=== PATIENT | male | born 2000 | race Caucasian/White ===

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

== ENCOUNTER 2020-05-11 11:27 | Emergency (ER) | payer BC, MEDICAID, SELFPAY ==
[2020-05-11 11:36] VITALS: BP 174/86; PULSE 87; RESP 20; TEMP 36.4; O2SAT 98
--- NOTE | 2020-05-11 11:46 | ED.GENADUL_ITS ---
Discharge Plan Disposition Patient Disposition: HOME Condition: Stable Discharge Details Clinical Impression: Mouth ulcer Primary Care Provider: Shakir Brewer ED Provider: Marixa Wayne Home Meds and New Rx's Prescriptions: New amoxicillin 500 mg tablet 500 mg PO TID 7 Days Qty: 21 RF: 0 Continued fluoxetine 20 mg capsule 40 mg PO DAILY Qty: 180 RF: 3 Discharge Instructions Instructions: Canker Sores (ED) Additional Instructions: You appear to have a small ulceration on the mucosal surface of your gums. This can be the source of your pain. It is important to avoid hot, spicy or small sharp foods to allow this area to heal. You can gargle with salt water and Listerine to clean the area. You do not have any evidence of a dental abscess at this time. Alternate tylenol and motrin as needed and directed for pain. If your symptoms do not improve in the next 1 to 2 days, you can start the oral antibiotic. Call your dentist tomorrow morning to schedule follow-up appointment for reevaluation. Return immediately to the emergency department if you develop any worsening or new concerning symptoms. Discharge Data Discharge Date/Time-TO BE ENTERED AT DEPARTURE: 05/11/20 12:43 Discharge Physician: Marixa Wayne Medical Decision Making 19-year-old male presents with an area of swelling and pain below a right front tooth for the past few days. Presents for evaluation of possible dental abscess. Patient has a 1 x 3 mm mucosal ulcer below tooth #28 but no evidence of abscess. Discussed with patient that this could have been due to trauma associated with hot liquids or foods, forceful toothbrushing, etc. No tenderness to palpation of teeth. Remainder of ENT exam normal. Patient advised on proper oral care, gargling with salt water and Listerine. Will give patient prescription for antibiotics if symptoms do not improve with oral care. He is advised to call his dentist tomorrow. Usual and customary return precautions given prior to discharge. Medical Records Medical records reviewed: Yes I reviewed the patient's medical records. HPI General Mode of arrival: ambulatory . Date/Time Provider Initiated Documentation: 05/11/20 11:45 . Limitations to Documentation: no limitations . Information obtained by: patient . HPI Narrative: Patient is a 19-year-old male who presents with swelling and pain of his gum on the right lower side for the past few days and he is concerned about a possible dental infection or abscess. He denies any dental pain, fever, sore throat, ear pain. He states he had a dental abscess 1 to 2 years ago that was treated with antibiotics and has had an area of swelling that has remained below this tooth since then. He states he had dental pain at that time but denies any dental pain for this current episode. He states he does have a dentist at [facility] and was told that he needs a root canal of the tooth in which she had a dental abscess but has put this appointment off due to Covid and other family issues. Related Data Home Medications Medication Instructions Recorded Confirmed fluoxetine 20 mg capsule 40 mg PO DAILY #180 cap 08/06/19 05/11/20 amoxicillin 500 mg PO TID 7 Days #21 tab 05/11/20 Previous Rx's Medication Instructions Recorded fluoxetine 20 mg capsule 40 mg PO DAILY #180 cap 08/06/19 amoxicillin 500 mg PO TID 7 Days #21 tab 05/11/20 Allergies Allergy/AdvReac Type Severity Reaction Status Date / Time No Known Drug Allergies Allergy Verified 02/12/19 07:26 Seasonal/Environmental Allergy Unknown Uncoded 02/12/19 07:26 Allergies General Stated Complaint: DentalOral STEFFANIE: 4 Review of Systems All systems reviewed & are unremarkable except as noted in HPI and below Constitutional Constitutional: Reports as per HPI, Denies chills and Denies fever(s) Eyes Eyes: Denies blurry vision ENT Ears, Nose, Mouth, and Throat: Denies dizziness, Reports mouth lesions, Reports mouth pain, Denies sore throat and Denies throat swelling Cardiovascular Cardiovascular: Denies chest pain and Denies dyspnea Respiratory Respiratory: Denies cough and Denies dyspnea Gastrointestinal Gastrointestinal: Denies abdominal pain, Denies diarrhea and Denies vomiting Genitourinary Genitourinary: Denies hematuria and Denies dysuria Musculoskeletal Musculoskeletal: Denies back pain and Denies numbness Integumentary/Breasts Skin/Breast: Denies lesions and Denies rash Neurologic Neurologic: Denies dizziness, Denies localized weakness and Denies numbness Allergic/Immunologic Allergic/Immunologic: Denies throat swelling [facility] Medical History (Updated 05/11/20 @ 12:27 by Marixa Wayne DO) Anxiety (05/22/14) issues going to school - HAD DONE WELL WITH MEDS BUT STOPPED AND RELAPSED 01/11 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 Family History Mother Healthy adult on routine physical examination Father Healthy adult on routine physical examination Maternal Uncle Sudden of family member MATERNAL UNCLE- HEART ATTACK Social History Smoking/Tobacco Use Status: Never Smoking risk assessment performed?: Yes Alcohol Intake: never Drug use: Never Substance use type: does not use Do you feel safe at home: Yes Do you feel safe in your relationship?: Yes Exam Const General: cooperative, healthy appearing and no acute distress HENMT Head: normal to inspection Ears: hearing grossly normal bilaterally, external ears normal and TM's normal bilaterally General nose exam: external nose normal Mouth: oral mucosae normal Teeth and gingiva: dentition normal Teeth image: 1. There is a 1 x 2 mm ulceration just below tooth #28 that has some tenderness palpation and surrounding mild edema and erythema. There is no fluctuance, induration, bleeding or foreign bodies. There is no tenderness palpation of the teeth. Throat: posterior oropharynx normal Eyes General: appearance normal, both eyes and all related structures Neck Neck: normal visual inspection, no lymphadenopathy, no meningeal signs, trachea midline, supple and No submandibular swelling Resp Effort & Inspection: normal respiratory effort and able to speak in complete sentences Cardio Rate: regular rate Skin General skin exam: no rashes or lesions noted Neuro General: patient alert, patient awake and patient oriented x3 Motor: muscle tone normal throughout Extrem General: normal to inspection and full ROM Psych Appearance: grossly normal Affect: normal affect Course Vital Signs Vital signs: Vital Signs Temperature 97.5 F L 05/11/20 11:36 Pulse 87 05/11/20 11:36 Respiratory Rate 20 05/11/20 11:36 Blood Pressure 174/86 H 05/11/20 11:36 Pulse Oximetry 98 05/11/20 11:36 Temperature 97.5 F L 05/11/20 11:36 Temperature Source Skin 05/11/20 11:36 Pulse 87 05/11/20 11:36 Respiratory Rate 20 05/11/20 11:36 Respiratory Effort Non-Labored 05/11/20 11:38 Blood Pressure 174/86 H 05/11/20 11:36 Blood Pressure Position Sitting 05/11/20 11:36 Pulse Oximetry 98 05/11/20 11:36 Oxygen Delivery Method Room Air 05/11/20 11:36 Oxygen Flow Rate 0 05/11/20 11:36 Pain Level 1 05/11/20 11:39
== END 2020-05-11 12:43 | disposition home or self-care (01) ==
PROVIDERS: Emergency Provider Physician Assistant; PCP Pediatrics
DX: K12.0 Recurrent oral aphthae (principal)
CPT/HCPCS: 99283

== ENCOUNTER 2021-09-16 15:23 | Emergency (ER) | payer BC, MEDICAID, SELFPAY ==
[2021-09-16 15:27] VITALS: BP 163/91; PULSE 86; RESP 16; O2SAT 99
--- NOTE | 2021-09-16 15:52 | ED.GENADUL_ITS ---
Discharge Plan Disposition Patient Disposition: HOME Condition: Stable Discharge Details Clinical Impression: Pharyngitis Primary Care Provider: Chuy Olivier ED Provider: Mariana John Home Meds and New Rx's Prescriptions: New amoxicillin-pot clavulanate 875-125 mg tablet 1 tab PO BID 5 Days Qty: 10 0RF No Action fluoxetine 20 mg capsule 40 mg PO DAILY Qty: 180 3RF Rx Instructions: 40 mg daily- Discharge Instructions Instructions: Pharyngitis (ED) Additional Instructions: At this time the strep rapid swab is negative. Sent for culture. I do suspect that this is viral. Stop using the hydrogen peroxide to gargle with instead use room temperature salt water gargles 3 times a day. If no improvement over the next 24 to 48 hours please begin the antibiotic Augmentin twice daily for 5 days. Please take Tylenol or Ibuprofen with food every 4-6 hours as needed for pain and swelling. If worsening follow-up with ear nose and throat Dr. Agustin. Or your primary care physician. Referrals: Chuy Olivier DO [Primary Care Provider] - 5 days Chase Agustin MD [ [facility] STAFF PHYSICIAN] - 1 week Discharge Data Discharge Date/Time-TO BE ENTERED AT DEPARTURE: 09/16/21 16:23 Medical Decision Making Rapid strep swab ordered if negative will send for a culture and a viral culture. Discussed gargling with warm salt water and to stop hydrogen peroxide. Verbalized understanding. At this time there is no pain advised, no evidence of peritonsillar abscess, the patient is nontoxic-appearing. Differential dx: Viral pharyngitis, strep, Strep culture sent to lab rapid strep was negative at this time. We will discussed home care and follow-up with ENT if symptoms worsen. I do suspect viral in nature. We will give patient approximately 5 days of Augmentin for possible bacterial etiology. HPI General Mode of arrival: ambulatory . Date/Time Provider Initiated Documentation: 09/16/21 15:51 . Limitations to Documentation: no limitations . Information obtained by: patient, RN notes reviewed and old records reviewed . HPI Narrative: 20 year old male with Chief complaint of Sore throat presents to ED with 3 days of right sided tonsilar pain. He noticed a ulcer-type lesion to his right tonsil. He endorses headache, denies any body aches, fever, chills, N/V or any other associated symptoms. He denies any recent oral intercourse or symptoms of STD or any known sick contacts. He denies any injury. He is speaking in full sentences with a clear voice. No rash. He has been gargling with Hydrogen peroxide and taking Tylenol and Ibuprofen with little to no relief. Related Data Home Medications Medication Instructions Recorded Confirmed fluoxetine 20 mg capsule 40 mg PO DAILY #180 caps 08/19/20 09/16/21 amoxicillin 875 mg-potassium 1 tab PO BID 5 days #10 tabs 09/16/21 clavulanate 125 mg tablet Previous Rx's Medication Instructions Recorded fluoxetine 20 mg capsule 40 mg PO DAILY #180 caps 08/19/20 amoxicillin 875 mg-potassium 1 tab PO BID 5 days #10 tabs 09/16/21 clavulanate 125 mg tablet Allergies Allergy/AdvReac Type Severity Reaction Status Date / Time No Known Drug Allergies Allergy Verified 09/16/21 15:31 Seasonal/Environmental Allergy Unknown Uncoded 09/16/21 15:31 Allergies General Stated Complaint: Sorethroat STEFFANIE: 3 Review of Systems All systems reviewed & are unremarkable except as noted in HPI and below ENT Ears, Nose, Mouth, and Throat: Reports as per HPI, Denies dental pain, Denies dysphagia (Pain with swallowing), Denies hoarseness, Denies neck mass, Denies neck pain and Reports sore throat Cardiovascular Cardiovascular: Denies chest pain and Denies dyspnea Respiratory Respiratory: Denies dyspnea Gastrointestinal Gastrointestinal: Denies dysphagia (Pain with swallowing), Denies diarrhea, Denies nausea and Denies vomiting Musculoskeletal Musculoskeletal: Denies neck pain PFSH All Active Problems (Updated 09/16/21 @ 16:16 by Mariana John) Pharyngitis (Acute) Obesity (Chronic) High blood pressure (Chronic) Establishing care with new doctor, encounter for (Acute) 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 Anxiety (Acute 05/22/14) issues going to school - HAD DONE WELL WITH MEDS BUT STOPPED AND RELAPSED 01/11 Surgical History History of dental surgery Root Canal 05/2020 Family History Mother Depression Father Diabetes Heart disease Maternal Uncle Sudden of family member MATERNAL UNCLE- HEART ATTACK Social History Smoking/Tobacco Use Status: Former Tobacco Use Second Hand Exposure: Yes Smoking risk assessment performed?: Yes Alcohol Intake: never Drug use: Never Substance use type: does not use Adopted: No Caregiver/Support person: No Foster care: No Household members: family Housing: house Number of Children: 0 number of grandchildren: 0 Communication Needs: None Education Level: high school Do you need help understanding health information?: Never 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 Pets and animals: No Sexually active: Yes Do you think of yourself as: straight/heterosexual Current gender identity: male What is your relationship status?: never How often do you talk on the phone with friends or family?: three or more times per week How often do you get together with friends or relatives?: three or more times per week Do you belong to any clubs or organized social groups?: no Panel score (0-1 are the most socially isolated patients): 1 What type of physical activity do you participate in: walking Duration: 30-45 minutes/day Frequency: 5-6 times per week Clari/Methodist: Roman Catholic Special clari needs: No Seatbelt use: always Helmet use: Yes Helmet use: sometimes Drive intox or ride w/intox driver education instructor: No Do you feel safe at home: Yes Do you feel safe in your relationship?: Yes Exam HENMA Head: normal to inspection Ears: hearing grossly normal bilaterally and external ears normal General nose exam: external nose normal Face and sinus: normal facial exam Mouth: oral mucosae normal, lip normal, tongue normal, salivary ducts normal, moist mucous membranes, no drooling and no muffled voice Throat: uvula midline, abnormal tonsil on the right erythema, exudates and other (Lesion, (canker sore?)2+) and on the left (1+) erythema and posterior oropharynx abnormal erythema; no lacerations and no foreign body Neck Neck: normal visual inspection Lymphatic: no lymphadenopathy noted Chest Chest: normal inspection of the chest Resp Effort & Inspection: normal respiratory effort and able to speak in complete sentences Auscultation: clear to auscultation bilaterally Cardio Rate: regular rate Heart Sounds: S1 normal and S2 normal Course Vital Signs Vital signs: Vital Signs Pulse 86 09/16/21 15:27 Respiratory Rate 16 09/16/21 15:27 Blood Pressure 163/91 H 09/16/21 15:27 Pulse Oximetry 99 09/16/21 15:27 Pulse 86 09/16/21 15:27 Respiratory Rate 16 09/16/21 15:27 Respiratory Effort Non-Labored 09/16/21 15:29 Blood Pressure 163/91 H 09/16/21 15:27 Blood Pressure Position Sitting 09/16/21 15:27 Pulse Oximetry 99 09/16/21 15:27 Oxygen Delivery Method Room Air 09/16/21 15:27 Oxygen Flow Rate 0 09/16/21 15:27 Pain Level 2 09/16/21 15:27
== END 2021-09-16 16:23 | disposition home or self-care (01) ==
PROVIDERS: Emergency Provider Registered Nurse Emergency; PCP Family Medicine
DX: J02.9 Acute pharyngitis, unspecified (principal)
CPT/HCPCS: 87880; 99283; 87081

== ENCOUNTER 2025-01-09 20:12 | Emergency (ER) | payer MEDICAID, SELFPAY ==
--- NOTE | 2025-01-09 20:15 | DI.RAD_ITS ---
Exam(s) XR HAND RT COMPLETE XR WRIST RT COMPLETE EXAM: XR WRIST RT COMPLETE and XR hand RT complete CLINICAL HISTORY: pain s/p hitting arm on railing. TECHNIQUE: 2D digital imaging was performed of the right hand and wrist. Six views were obtained. PA, lateral and oblique views were obtained. COMPARISON: There are no priors for comparison. FINDINGS: BONES: No acute fracture is present. No bony destructive lesion is seen. There is a well-circumscribed osseous density at the dorsal aspect of the DIP joint of the 4th finger which appears chronic. JOINTS: The carpal bones are normally aligned. SOFT TISSUE: Normal. IMPRESSION: 1. There is no acute fracture or dislocation in the hand or wrist. 2. The preliminary [facility] report was reviewed. DATA REPOSITORY: RADIATION DOSE DELIVERED:
[2025-01-09 20:17] VITALS: BP 155/91; PULSE 105; RESP 22; TEMP 36.4; O2SAT 98
--- NOTE | 2025-01-09 21:25 | W.ED.GENAD ---
Discharge Plan Disposition Patient Disposition: Home Condition: Stable Discharge Details Clinical Impression: Contusion of right wrist, Contusion of hand, right Primary Care Provider: Chuy Olivier ED Provider: Ivan Jesus Home Meds and New Rx's Prescriptions: Continued fluoxetine 40 mg capsule 40 mg PO DAILY Qty: 90 3RF Discharge Instructions Additional Instructions: Your x-rays did not show any broken bones at this time. If you are having pain in a week follow-up with your primary care provider. You wear the splint until pain-free. You can take 1000 mg of acetaminophen and 600 mg of ibuprofen every 6 hours as needed. If you feel more ill or have severe worsening pain return to the emergency department for reevaluation. HPI General Mode of arrival: ambulatory. Date/Time Provider Initiated Documentation: 01/09/25 20:21. Limitations to Documentation: no limitations. Information obtained by: patient. History of Present Illness 24 year old M presents to the emergency department with the chief complaint of wrist pain s/p hitting a railing, described as moderate, Quality is described as aching, and is localized to the right and upper extremity. Patient reports no radiation. Patient started experiencing this hour(s) (2) and it has been constant. Rest improves symptom(s), Movement worsens symptoms . Patient notes no other symptoms.. Patient did receive the following treatments prior to arrival, none Related Data Home Medications ?Medication ?Instructions ?Recorded ?Confirmed fluoxetine 40 mg capsule 40 mg PO DAILY #90 caps 01/16/24 01/09/25 Previous Rx's ?Medication ?Instructions ?Recorded fluoxetine 40 mg capsule 40 mg PO DAILY #90 caps 01/16/24 Allergies Allergy/AdvReac Type Severity Reaction Status Date / Time No Known Drug Allergies Allergy Other (See Verified 01/09/25 20:20 Comment) Seasonal/Environmental Allergy Mild runny Uncoded 01/09/25 20:20 Allergies nose; itchy, watery eyes General Stated Complaint: Orthopedic STEFFANIE: 4 Review of Systems All systems reviewed & are unremarkable except as noted in HPI and below Constitutional Constitutional: Denies chills, Denies fever(s) and Denies weakness Cardiovascular Cardiovascular: Denies chest pain and Denies dyspnea Respiratory Respiratory: Denies cough and Denies dyspnea Gastrointestinal Gastrointestinal: Denies abdominal pain, Denies nausea and Denies vomiting Neurologic Neurologic: Denies weakness Exam Const General: no acute distress Orientation: alert HENMT Head: normal to inspection Ears: external ears normal General nose exam: external nose normal Mouth: moist mucous membranes Eyes General: appearance normal, both eyes and all related structures Neck Neck: normal visual inspection Resp Effort & Inspection: normal respiratory effort and able to speak in complete sentences Cardio Rate: regular rate Skin General skin exam: no rashes or lesions noted Neuro General: patient alert and patient oriented x3 Extrem General: full ROM and capillary refill normal Psych Mental Status: mental status grossly normal Course Vital Signs Vital signs: Vital Signs Temperature 36.4 C L 01/09/25 20:17 Pulse 105 H 01/09/25 20:17 Respiratory Rate 22 01/09/25 20:17 Blood Pressure 155/91 H 01/09/25 20:17 Pulse Oximetry 98 01/09/25 20:17 Temperature 36.4 C L 01/09/25 20:17 Temperature Source Oral 01/09/25 20:17 Pulse 105 H 01/09/25 20:17 Respiratory Rate 22 01/09/25 20:17 Blood Pressure 155/91 H 01/09/25 20:17 Blood Pressure Position Sitting 01/09/25 20:17 Pulse Oximetry 98 01/09/25 20:17 Oxygen Delivery Method Room Air 01/09/25 20:17 Oxygen Flow Rate 0 01/09/25 20:17 Pain Level 6 01/09/25 20:20 Medical Decision Making 24-year-old male comes in with a right wrist injury. He says he got upset and hit his right ulnar surface of his wrist on a railing. Did not fall or sustain other injuries. He has pain over the ulnar surface of the hand and wrist. He has full range of motion of the fingers and the wrist. Intact cap refill and pulses. Has no tenderness elsewhere in the hand. There is no visible or palpable deformities of the wrist. I suspect contusion. He had x-rays prior to my exam which on my read shows no acute findings. Awaiting virtual radiology read. X-rays show no acute findings but they do comment on a small ossicle anterior to the fourth DIP joint. Patient has no tenderness here so I doubt this is an acute fracture. He is stable for discharge, splint provided he will follow-up with his PCP if not improving. 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 Anxiety (Acute 05/22/14) issues going to school - HAD DONE WELL WITH MEDS BUT STOPPED AND RELAPSED 01/11 Surgical History History of dental surgery Root Canal 05/2020 Family History Mother Depression Father Diabetes Heart disease Maternal Uncle Sudden of family member MATERNAL UNCLE- HEART ATTACK Social History (Updated 12/16/22 @ 09:06 by Zuleika Bledsoe CMA) Smoking/Tobacco Use Status: Never Second Hand Exposure: Yes Smoking risk assessment performed?: Yes Alcohol Intake: current Drug use: Occasionally Substance use type: marijuana Adopted: No Caregiver/Support person: No Foster care: No Household members: family Housing: house Number of Children: 0 number of grandchildren: 0 Communication Needs: None Education Level: high school Do you need help understanding health information?: Rarely 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 Pets and animals: No Sexually active: Yes Do you think of yourself as: straight/heterosexual Current gender identity: male What is your relationship status?: never How often do you talk on the phone with friends or family?: three or more times per week How often do you get together with friends or relatives?: three or more times per week Do you belong to any clubs or organized social groups?: yes Panel score (0-1 are the most socially isolated patients): 2 What type of physical activity do you participate in: walking, bicycling and other Details: Light strength training Duration: 15-30 minutes/day Frequency: 5-6 times per week Clari/Sabianism: None Special clari needs: No Seatbelt use: always Helmet use: Yes Helmet use: sometimes Drive intox or ride w/intox milk pickup 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
--- NOTE | 2025-01-09 21:57 | DI.[facility]_ITS ---
PROCEDURE INFORMATION: Exam: XR Right Wrist Exam date and time: 01/09/2025 8:41 PM Age: 24 years old Clinical indication: Wrist; Right; Pain S/P hitting arm on railing TECHNIQUE: Imaging protocol: Radiologic exam of the right wrist. Views: 3 or more views. COMPARISON: CR XR HAND RT COMPLETE 01/09/2025 8:39 PM FINDINGS: Bones/joints: Normal. Soft tissues: Normal. IMPRESSION: No acute findings. Dictated and Authenticated by: Brittny Vargas MD. Orderin Ann Marie Love MD
--- NOTE | 2025-01-09 22:02 | DI.[facility]_ITS ---
PROCEDURE INFORMATION: Exam: XR Right Hand Exam date and time: 01/09/2025 8:39 PM Age: 24 years old Clinical indication: Hand; Right; Pain S/P hitting arm on railing TECHNIQUE: Imaging protocol: Radiologic exam of the right hand. Views: 3 or more views. COMPARISON: No relevant prior studies available. FINDINGS: Bones/joints: No joint dislocation. There is a small ossicle noted anterior to the 4th distal interphalangeal joint, which may be secondary to chronic injury. There is suggestion of mild osteophyte formation at the base of the 4th distal phalanx. Soft tissues: Soft tissue swelling is noted surrounding he 4th interphalangeal joint. IMPRESSION: 1. No acute fracture or dislocation. 2. Small ossicle anterior to the 4th DIP joint, possibly representing a chronic injury with arthrosis. However, correlate with physical examination findings to exclude acute avulsion injury. Dictated and Authenticated by: Brittny Vargas MD. Orderin Ann Marie Love MD
--- NOTE | 2025-01-10 15:04 | NUR.NOTE ---
accessed chart for work note Nursing Note:
== END 2025-01-09 22:28 | disposition home or self-care (01) ==
PROVIDERS: Emergency Provider Emergency Medicine; PCP Family Medicine
DX: S60.211A Contusion of right wrist, initial encounter (principal); S60.221A Contusion of right hand, initial encounter; W22.09XA Striking against other stationary object, initial encounter
CPT/HCPCS: 99284; 99283; 73110; 73130